=== PATIENT | male | born 1960 | race American Indian/Alaskan Native ===

== ENCOUNTER 2018-11-26 10:59 | Emergency (ER) | payer BC, OTHER ==
[~2018-11-26] VITALS: Ht 170.2 cm; Wt 108.9 kg
[~2018-11-26 10:59] MED LIST: ASPIRIN EC81 MG PO; ERGOCALCIF50000 UNIT PO; GEMFIBROZIL600 MG PO; GLIPIZIDE10 MG PO; HYDROCODON-ACE1 EA11 PO; IBUPROFEN800 MG PO; JANUVIA100 MG PO; LANTUS100 UNITS/ SUB-Q; LISINOPRIL10 MG PO; LOSARTAN POTASS50 MG PO; METFORMIN HCL1000 MG PO; NIFEDIPINE ER30 MG PO; PRAVASTATIN SOD40 MG PO; TRIAMTERENE-HC1 EAC1 PO
[2018-11-26] MEDS ORDERED: LOSARTAN POTAS100 MG PO (11:12)
[2018-11-26] MEDS ORDERED: DIGOXIN125 MCG PO (11:12)
[2018-11-26] MEDS ORDERED: FENOFIBRATE160 MG PO (11:12)
[2018-11-26] MEDS ORDERED: HUMULIN N100 UNIT/3 SUB-Q (11:13)
[2018-11-26] MEDS ORDERED: VITAMIN D250000 UNIT PO (11:14)
[2018-11-26] MEDS ORDERED: VALACYCLOVIR1000 MG PO (13:03)
[2018-11-26] MEDS ORDERED: PREDNISONE20 MG PO (13:03)
== END 2018-11-26 14:19 | disposition home or self-care (01) ==
LOC: ED 10:59
DX: G51.0 Bell's palsy (principal); E11.9 Type 2 diabetes mellitus without complications; I10 Essential (primary) hypertension; E78.5 Hyperlipidemia, unspecified; K21.9 Gastro-esophageal reflux disease without esophagitis; Z86.73 Personal history of transient ischemic attack (TIA), and cerebral infarction without residual deficits; Z88.8 Allergy status to other drugs, medicaments and biological substances; Z79.899 Other long term (current) drug therapy; Z79.4 Long term (current) use of insulin; Z79.82 Long term (current) use of aspirin
CPT/HCPCS: 70551; 80053; 85025; 99284-25; J7512

== ENCOUNTER 2022-07-02 13:46 | Emergency (ER) | payer BC, OTHER ==
[~2022-07-02] VITALS: Ht 170.2 cm; Wt 112.5 kg
[~2022-07-02 13:46] MED LIST changes: +B-12 DOTS500 MCG PO; +DIGOXIN125 MCG PO; +FENOFIBRATE160 MG PO; +FISH OIL CONC1000 MG PO; +FLOMAX0.4 MG PO; +HUMULIN N100 UNIT/3 SUB-Q; +LIPITOR80 MG PO; +LOSARTAN POTAS100 MG PO; +METOPROLOL SUCC50 MG PO; +NOVOLOG FL100 UNIT/1 SUB-Q; +PREDNISONE20 MG PO; +TRULICITY0.75 MG/0. SUB-Q; +VALACYCLOVIR1000 MG PO; +VASCEPA1 GM PO; +VITAMIN D250000 UNIT PO
== END 2022-07-02 16:10 | disposition home or self-care (01) ==
LOC: ED 13:46
DX: M79.652 Pain in left thigh (principal); E11.9 Type 2 diabetes mellitus without complications; I10 Essential (primary) hypertension; E78.5 Hyperlipidemia, unspecified; K21.9 Gastro-esophageal reflux disease without esophagitis; G47.30 Sleep apnea, unspecified; I27.20 Pulmonary hypertension, unspecified; Z87.891 Personal history of nicotine dependence; Z88.8 Allergy status to other drugs, medicaments and biological substances; Z88.6 Allergy status to analgesic agent; Z79.899 Other long term (current) drug therapy; Z79.4 Long term (current) use of insulin; Z79.82 Long term (current) use of aspirin
CPT/HCPCS: 93971; 99283-25

== ENCOUNTER 2023-07-04 12:20 | Emergency (ER) | payer OTHER, BC ==
[~2023-07-04] VITALS: Ht 170.2 cm; Wt 113.4 kg
[2023-07-04] MEDS ORDERED: ROSUVASTATIN CA40 MG PO (12:40)
[2023-07-04] MEDS ORDERED: PIOGLITAZONE HC45 MG PO (12:40)
[2023-07-04] MEDS ORDERED: HYDROCODON-ACE1 EA11 PO (13:58)
[2023-07-04 15:00] VITALS: BP 111/70
== END 2023-07-04 15:18 | disposition home or self-care (01) ==
LOC: ED 12:20
DX: S82.144A Nondisplaced bicondylar fracture of right tibia, initial encounter for closed fracture (principal); W01.10XA Fall on same level from slipping, tripping and stumbling with subsequent striking against unspecified object, initial encounter; E11.9 Type 2 diabetes mellitus without complications; I10 Essential (primary) hypertension; E78.5 Hyperlipidemia, unspecified; K21.9 Gastro-esophageal reflux disease without esophagitis; G47.30 Sleep apnea, unspecified; Z87.891 Personal history of nicotine dependence; Z88.8 Allergy status to other drugs, medicaments and biological substances; Z79.899 Other long term (current) drug therapy; Z79.4 Long term (current) use of insulin; Z79.82 Long term (current) use of aspirin
CPT/HCPCS: 73560; 73700; 99284-25

== ENCOUNTER 2025-01-19 08:53 | Day surgery (SDC) | payer BC, OTHER ==
[2025-01-14 10:31] VITALS: BP 167/84
[~2025-01-19] VITALS: Ht 170.2 cm; Wt 143.2 kg
[~2025-01-19 08:53] MED LIST changes: +CRESTOR40 MG PO; +FARXIGA10 MG PO; +HYDRALAZINE HCL50 MG PO; +IBLOOD GLUCOSE TEST STRIP 1 EA TEST VI PRN; +ICOSAPENT ETHYL1 GM PO; +LACTATED RINGER'S 1,000 ML IV SCH; +LIDOCAINE HCL 1% 5 ML SDV INJ ONE; +METOPROLOL SUCC25 MG PO; +PIOGLITAZONE HC45 MG PO; +ROSUVASTATIN CA40 MG PO; +VITAMIN D21250 MCG PO; -VITAMIN D250000 UNIT PO
[2025-01-19] MEDS ORDERED: DEXTROSE 50% 50 ML SYR IV ONE (09:15)
[2025-01-19 09:17] VITALS: BP 129/64
--- NOTE | 2025-01-19 11:21 | NUR ---
01/19/25 1121 Mitra Joshi 1105-PATIENT ARRIVED TO PACU ON 3L OXYMASK LAYING LEFT LATERAL PATIENT AWAKE REACTIVE TO VERBAL STIMULI ABDOMEN SOFT IVF INFUSING. SR HR 60-70'S. 1109-PATIENT AWAKE GLUCOSE LEVEL 74 1112-PATIENT DRINKING ORANGE JUICE PLACED ON RA 95% RR EVEN. IVF INFUSING. CALL PLACED TO DIETARY FOR SANDWICH. ENCOURAGED TO PASS GAS. 1120-PATIENT AWAKE DENIES PAIN OR NAUSEA. RA 94% RR EVEN
[2025-01-19 12:24] VITALS: BP 150/70
--- NOTE | 2025-01-20 09:54 | OR ---
[facility] [address], [place] [address] Signed DATE OF OPERATION: 01/19/2025 SURGEON: Cheikh Vo MD PREOPERATIVE DIAGNOSES: 1. History of serrated rather a sessile tubular adenoma at 60 cm in 2019. 2. Morbid obesity with sleep apnea. POSTOPERATIVE DIAGNOSIS: Minimal diverticulosis, sigmoid. PROCEDURE: Total colonoscopy to cecum. ANESTHESIA: Intravenous sedation; propofol, Flaca Rouse CRNA. INDICATION: This morbidly obese 64-year-old [place] man underwent colonoscopy by me in 2019 at which time he had a sessile polyp at 60 cm which was resected with snare technique. The lesion was found to be a tubular adenoma without dysplasia. He has no current symptoms of bleeding, diarrhea or constipation. He has number of medical problems including diabetes mellitus, morbid obesity at 313 pounds and sleep apnea. Surveillance colonoscopy was recommended for this time frame and on that basis, he will undergo colonoscopy with propofol sedation technique given his numerous significant comorbidities. The risk of bleeding, infection, and cardiovascular problems reviewed with him. He understands and wished to proceed. FINDINGS: The prep was adequate. Complete colonoscopy was undertaken to cecum. He had no recurrent polyps or new polyps. He had a few scattered diverticula of the sigmoid. There was some internal hemorrhoids, but nothing problematic at this time. DESCRIPTION OF PROCEDURE: The patient was brought to the endoscopy suite and placed in lateral decubitus position. Given intravenous sedation to the point of slurred speech and nystagmus. Cardiopulmonary monitoring was maintained. Digital rectal examination was essentially normal. Electronically Signed By: CHEIKH VO MD 01/20/25 0954 PATIENT NAME: MARIVEL GILES OPERATIVE REPORT DATE OF : 60 REPORT #: [id number] PHYSICIAN: CHEIKH VO MD PCP: YECENIA EVERETT PAC REPORT IS CONFIDENTIAL AND NOT TO BE RELEASED WITHOUT AUTHORIZATION [facility] [address] [place] [id number] Signed An Olympus video colonoscope was passed in the rectum and manipulated throughout the colon ultimately intubating the cecum itself. The ileocecal valve and appendiceal orifice were normal. Irrigation was undertaken as needed on the basis of his prep level. The scope was then withdrawn. Examination throughout showed no sign of abnormality specifically no polyps, but did show few diverticula of the sigmoid. Rectum was normal except for internal hemorrhoidal change. Scope was removed. The patient was taken to the recovery room in good condition. CONCLUDING DIAGNOSIS: Minimal diverticulosis and internal hemorrhoids. PLAN: Recommend repeat colonoscopy in 10 years based on current guidelines, sooner if symptoms should develop. Recommend high-fiber diet as well. He will return to the ongoing care of Yecenia Everett [facility]. MD JOE Gonzalez/ARVIND /[id number] cc: Yecenia Everett [facility] Copies: ~ Electronically Signed By: CHEIKH VO MD 01/20/25 0954 PATIENT NAME: MARIVEL GILES OPERATIVE REPORT DATE OF : 60 REPORT #: [id number] PHYSICIAN: CHEIKH VO MD PCP: YECENIA EVERETT PAC REPORT IS CONFIDENTIAL AND NOT TO BE RELEASED WITHOUT AUTHORIZATION
== END 2025-01-19 12:30 | disposition home or self-care (01) ==
LOC: OPS 08:53 → DS 08:53 → OPS 10:00 → DS 10:00 → OPS 12:30
PROVIDERS: ATTEND Surgery
PROC: 0DJD8ZZ Inspection of Lower Intestinal Tract, Via Natural or Artificial Opening Endoscopic (ICD-10-PCS; principal; 2025-01-19 10:00)
DX: Z12.11 Encounter for screening for malignant neoplasm of colon (principal); K57.30 Diverticulosis of large intestine without perforation or abscess without bleeding; K64.8 Other hemorrhoids; G47.30 Sleep apnea, unspecified; I10 Essential (primary) hypertension; E11.9 Type 2 diabetes mellitus without complications; E78.5 Hyperlipidemia, unspecified; E66.01 Morbid (severe) obesity due to excess calories; Z68.42 Body mass index [BMI] 45.0-49.9, adult; Z85.46 Personal history of malignant neoplasm of prostate; Z92.3 Personal history of irradiation; Z86.0100 Personal history of colon polyps, unspecified; Z79.4 Long term (current) use of insulin; Z79.82 Long term (current) use of aspirin; Z79.899 Other long term (current) drug therapy
CPT/HCPCS: 00811; J7121